=== PATIENT | female | born 1995 | race Caucasian/White ===

== ENCOUNTER 2016-12-17 16:36 | Emergency (ER) | payer OTHER ==
[2016-12-17 17:40] VITALS: BP 151/102
--- NOTE | 2016-12-17 17:49 | UC ---
Throat Pain/Nasal Jay HPI - HPI Summary HPI Summary: complaint of sore throat and nasal congestion that started 5 days ago productive cough with green sputum intermittent headaches denies fever and chills denies N/V/D using mucinex DM and nyquil without relief of cough no use of albuterol inhaler during this illness - History of Current Complaint Chief Complaint: UCRespiratory Stated Complaint: SINUS Time Seen by Provider: 12/17/16 17:42 Hx Last Menstrual Period: 12/11/16 - Allergies/Home Medications Allergies/Adverse Reactions: Allergies Allergy/AdvReac Type Severity Reaction Status Date / Time Cat Hair Extract Allergy Runny Nose Verified 12/17/16 17:15 Erythromycin Allergy GI Upset Verified 12/17/16 17:15 environmental Allergy Runny Nose Uncoded 12/17/16 17:15 Home Medications: Home Medications Dextromethorphan-Guaifenesin [Mucinex Dm Maximum Streng 60-1200 mg] 1 tab PO Q8HR PRN 12/17/16 [History Confirmed 12/17/16] PMH/Surg Hx/FS Hx/Imm Hx Previously Healthy: Yes Endocrine History Of: Denies: Diabetes, Thyroid Disease, Hyperthyroidism, Hypothyroidism, Dyslipidemia Cardiovascular History Of: Reports: Hypertension - readings --"borderline" watched by her PCP. Denies: Cardiac Disorders, Pacemaker/ICD, Myocardial Infarction, Congestive Heart Failure, Atrial Fibrillation, Deep Vein Thrombosis, Bleeding Disorders Respiratory History Of: Reports: Asthma - She only used an inhaler when she was 6 years old. Denies: COPD, Bronchitis, Pneumonia, Pulmonary Embolism GI/ History Of: Denies: Gastroesophageal Reflux, Ulcer, Gastrointestinal Bleed, Gall Bladder Disease, Kidney Stones, Diverticulitis, Renal Disease, Urosepsis Neurological History Of: Denies: TIA, CVA, Dementia, Seizures, Migraine Psychological History Of: Reports: Anxiety Denies: Depression, Bipolar Disorder, Schizophrenia, Post Traumatic Stress Disorder Cancer History Of: Denies: Lung Cancer, Colorectal Cancer, Breast Cancer, Prostate Cancer, Cervical Cancer Other History Of: Negative For: HIV, Hepatitis B, Hepatitis C - Surgical History Surgical History: Yes Surgery Procedure, Year, and Place: thumb - Family History Known Family History: Positive: Hypertension, Diabetes, Other - Grandmother with rheumatoid and osteoarthritis. - Social History Occupation: Student Alcohol Use: Occasionally Substance Use Type: None Smoking Status (MU): Never Smoked Tobacco Have You Smoked in the Last Year: No Review of Systems Constitutional: Negative Skin: Negative Eyes: Negative ENT: Sore Throat, Nasal Discharge Respiratory: Cough Cardiovascular: Negative Gastrointestinal: Negative Genitourinary: Negative Motor: Negative Neurovascular: Negative Musculoskeletal: Negative Neurological: Negative Psychological: Negative All Other Systems Reviewed And Are Negative: Yes Physical Exam Triage Information Reviewed: Yes Appearance: No Pain Distress, Well-Nourished Vital Signs: Initial Vital Signs Temp 98.2 F 12/17/16 17:07 Pulse 87 12/17/16 17:07 Resp 18 12/17/16 17:07 BP 151/102 12/17/16 17:07 Pulse Ox 100 12/17/16 17:07 Vital Signs Reviewed: Yes Eyes: Positive: Conjunctiva Clear ENT: Positive: Pharynx normal, Nasal congestion, TMs normal Neck: Positive: No Lymphadenopathy Respiratory: Positive: Lungs clear, Normal breath sounds, No respiratory distress Cardiovascular: Positive: RRR, No Murmur, Pulses Normal Abdomen Description: Positive: Nontender, Soft Bowel Sounds: Positive: Present Musculoskeletal: Positive: No Edema Neurological: Positive: Alert Psychological Exam: Normal Skin Exam: Normal Throat Pain/Nasal Course/Dx - Differential Dx/Diagnosis Differential Diagnosis/HQI/PQRI: Otitis Media, Tonsillitis, URI Provider Diagnoses: URI Discharge - Discharge Plan Condition: Stable Disposition: HOME Prescriptions: Benzonatate CAP* [Tessalon CAP*] 100 mg PO TID #30 cap Oxymetazoline 0.05% NASAL SPR* [Afrin 0.05% NASAL SPRAY*] 1 spray NASAL Q12H #1 btl Patient Education Materials: Upper Respiratory Infection (ED), Hypertension (ED ) Referrals: Mercedes Moran MD [Primary Care Provider] - Additional Instructions: Your blood pressure is elevated It is important that you followup with your primary care provider for further evaluation and treatment VIRAL UPPER RESPIRATORY INFECTION (COMMON COLD) What is Viral Upper Respiratory Infection? Viral upper respiratory infection is the medical term for the common cold. Respiratory infections can be caused by either a virus or bacteria. The common cold is caused by a virus. The virus travels through the air and can be passed easily from one person to another. This is one reason that it is so important to cover your mouth when you cough or sneeze. When you cover your mouth you will get the virus on your hands. If you touch something with that hand the virus is spread to the object you touch. Because of this you should be sure to wash your hands often when you have a cold. Symptoms usually begin 1 to 3 days after the virus takes hold in your body. Other people can catch your cold even before you start to notice symptoms, which is one reason why colds are hard to prevent. Symptoms May Include: Scratchiness or tickling in the throat Sore throat Stuffy nose Generalized aches and pains Coughing or sneezing Feeling tired Treatment Recommendations: Drink plenty of clear, nonalcoholic fluids, such as water, sports drinks, or juice. For example, an average adult should drink 8 ounces every hour, a child 6 to 10 years should drink 4 ounces every hour, and a child under 6 should drink 1 to 2 ounces every hour. You should rest as much as possible. You can use a cool-mist humidifier or steam vaporizer to increase air moisture. This will make it easier to breathe. Remember that a steam vaporizer may contain hot water that can cause severe christianson. If you smoke, stopsmoke irritates bronchial passages. If you are coughing up mucus, and milk seems to make the sputum thicker, do not eat or drink foods that contain milk. You want to try to cough up mucous whenever possible so that you dont get pneumonia. Do not use cough suppressant medicine without your healthcare providers [place]. You should take all medications prescribed until completely gone, or as instructed. Non-prescription medicine such as acetaminophen (Tylenol) or ibuprofen (Motrin , Advil) may help your aches, pains, and fever. Do not take someone else's medicine, or penicillin tablets that you may have saved. You could cause a more serious problem than you already have. Don't bundle up to sweat out a fever. It only makes your fever worse. If you feel cold, cover up; if you feel warm, dress lightly. Dont use non-prescription medicine with antihistamines for your cold symptoms. They may make your mouth and nose too dry, and can make the mucous you are trying to cough up too thick to cough up easily. Antihistamines are more helpful for hay fever-like symptoms.
== END 2016-12-17 18:01 | disposition home or self-care (01) ==
LOC: UCCORT 16:36
DX: J06.9 Acute upper respiratory infection, unspecified (principal); Z88.1 Allergy status to other antibiotic agents
CPT/HCPCS: 99212; G0463

== ENCOUNTER 2017-04-07 13:08 | Emergency (ER) | payer OTHER ==
--- NOTE | 2017-04-07 14:13 | UC ---
Ear Complaint HPI - HPI Summary HPI Summary: 22 female presents with complaints of bilateral ear pain, fullness and feeling like she is hearing under water. Patient denies any recent swimming or submerging ears under water. States she has been suffering nasal congestion, sore throat and cough for the past week without much relief. Has been taking Advil and tried Dayquil today with little relief. Patient admits to chills but has not taken her temperature. She denies nausea/vomiting and sinus pressure. Admits to OM as a child, frequently. No discharge from ears or hearing loss. She thought at first it was allergies until ears began to cause her pain. She admits to throat feeling raw due to coughing and post nasal drip. - History of Current Complaint Chief Complaint: UCRespiratory Stated Complaint: cough,ear complaint Time Seen by Provider: 04/07/17 13:48 Hx Last Menstrual Period: 04/01/17 ?: No Onset/Duration: Sudden Onset, Lasting Weeks, Still Present, Worse Since Severity Initially: Mild Severity Currently: Moderate Pain Intensity: 6 Pain Scale Used: 0-10 Numeric Aggravating Factors: Nothing Alleviating Factors: OTC Meds Associated Signs/Symptoms: Positive: URI Symptoms. Negative: Discharge, Hearing Loss, Foreign Body Sensation, Trauma to Ear, Swelling @ Related History: Seasonal Allergies - Allergies/Home Medications Allergies/Adverse Reactions: Allergies Allergy/AdvReac Type Severity Reaction Status Date / Time Cat Hair Extract Allergy Runny Nose Verified 04/07/17 13:50 Erythromycin Allergy GI Upset Verified 04/07/17 13:50 environmental Allergy Runny Nose Uncoded 04/07/17 13:50 PMH/Surg Hx/FS Hx/Imm Hx Endocrine History Of: Denies: Diabetes, Thyroid Disease, Hyperthyroidism, Hypothyroidism, Dyslipidemia Cardiovascular History Of: Reports: Hypertension - readings --"borderline" watched by her PCP. Denies: Cardiac Disorders, Pacemaker/ICD, Myocardial Infarction, Congestive Heart Failure, Atrial Fibrillation, Deep Vein Thrombosis, Bleeding Disorders Respiratory History Of: Reports: Asthma - She only used an inhaler when she was 6 years old. Denies: COPD, Bronchitis, Pneumonia, Pulmonary Embolism GI/ History Of: Denies: Gastroesophageal Reflux, Ulcer, Gastrointestinal Bleed, Gall Bladder Disease, Kidney Stones, Diverticulitis, Renal Disease, Urosepsis Neurological History Of: Denies: TIA, CVA, Dementia, Seizures, Migraine Psychological History Of: Reports: Anxiety Denies: Depression, Bipolar Disorder, Schizophrenia, Post Traumatic Stress Disorder Cancer History Of: Denies: Lung Cancer, Colorectal Cancer, Breast Cancer, Prostate Cancer, Cervical Cancer Other History Of: Negative For: HIV, Hepatitis B, Hepatitis C - Surgical History Surgical History: Yes Surgery Procedure, Year, and Place: thumb as child - Family History Known Family History: Positive: Hypertension, Diabetes, Other - Grandmother with rheumatoid and osteoarthritis. - Social History Alcohol Use: Occasionally Substance Use Type: None Smoking Status (MU): Never Smoked Tobacco Have You Smoked in the Last Year: No - Immunization History Vaccination Up to Date: Yes Review of Systems Constitutional: Chills, Fatigue Skin: Negative Eyes: Negative ENT: Sore Throat, Ear Ache, Nasal Discharge Respiratory: Cough Cardiovascular: Negative Gastrointestinal: Negative Motor: Negative Neurological: Negative All Other Systems Reviewed And Are Negative: Yes Physical Exam Triage Information Reviewed: Yes Appearance: Well-Appearing - sounds congested on exam, No Pain Distress, Well- Nourished Vital Signs: Initial Vital Signs Temp 99 F 04/07/17 13:43 Pulse 87 04/07/17 13:43 Resp 18 04/07/17 13:43 BP 148/102 04/07/17 13:43 Pulse Ox 99 04/07/17 13:43 low grade temp. elevated BP, re-checked while in office to be 141/88. Also recommended follow up with PCP for re-check within the next week. Vital Signs Reviewed: Yes Eyes: Positive: Conjunctiva Clear ENT: Positive: Hearing grossly normal, Pharyngeal erythema, Nasal congestion, Nasal drainage, TMs normal, TM bulging, TM dull, TM red - b/l. Negative: Tonsillar swelling, Tonsillar exudate, Trismus, Muffled/hoarse voice Dental: Positive: Cervical Lymphadenopathy. Negative: Percussion Tenderness @ Neck: Positive: Supple, Nontender Respiratory: Positive: Chest non-tender, Lungs clear, Normal breath sounds, No respiratory distress, No accessory muscle use Cardiovascular: Positive: RRR, No Murmur, Pulses Normal Abdomen Description: Positive: Nontender, No Organomegaly, Soft Bowel Sounds: Positive: Present Musculoskeletal Exam: Normal Musculoskeletal: Positive: Strength Intact, ROM Intact Neurological: Positive: Alert Skin Exam: Normal Ear Complaint Course/Dx - Course Course Of Treatment: due to PE findings and HPI patient will be treated for OM with amoxicillin and flonase. Also suggested to continue advil/tylenol, saline rinses and hot showers. rest, fluids do not submerge ears under water. follow up. aware of worsening signs and symptoms. - Differential Dx/Diagnosis Differential Diagnosis/HQI/PQRI: Otitis Externa, Otitis Media, Pharyngitis, URI , Other Provider Diagnoses: Otitis Media b/l, URI Discharge - Discharge Plan Condition: Good Disposition: HOME Prescriptions: Amoxicillin CAP* [Amoxicillin 500 MG CAP*] 500 mg PO Q12H #20 cap Fluticasone NASAL SPRAY 50MCG* [Flonase NASAL SPRAY 50MCG*] 2 spray BOTH NARES DAILY #1 btl Patient Education Materials: Otitis Media (ED), Upper Respiratory Infection (ED ), Hypertension (ED) Referrals: Mercedes Moran MD [Primary Care Provider] - Additional Instructions: Take prescribed antibiotic as directed, until entire dose is finished even if symptoms persist. Take probiotic pill or eat arabic yogurt/ smoothie to help replenish good bacteria to prevent yeast infection. Double up on OCP since antibiotics decrease effectiveness of control. Advil/Tylenol for pain and fevers as needed. Do not stick anything in your ears and do not submerge under water. Gargle with salt water. Saline rinses you can buy over the counter. Recommend Claritin or Cristina D to help with allergies and dry up congestion. If symptoms worsen or do not improve please return. Follow up with PCP, especially to re-check elevated BP.
[2017-04-07 14:39] VITALS: BP 142/88
== END 2017-04-07 14:43 | disposition home or self-care (01) ==
LOC: UCCORT 13:08
DX: H66.93 Otitis media, unspecified, bilateral (principal); J06.9 Acute upper respiratory infection, unspecified; J45.909 Unspecified asthma, uncomplicated; F41.9 Anxiety disorder, unspecified; Z88.1 Allergy status to other antibiotic agents
CPT/HCPCS: 99212; G0463

== ENCOUNTER 2017-07-09 17:52 | Emergency (ER) | payer OTHER ==
[2017-07-09 18:15] VITALS: BP 145/78
--- NOTE | 2017-07-09 18:29 | UC ---
Complaint Female HPI - HPI Summary HPI Summary: Pt presents with request for STD screening. 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 Pt is currently taking oral antibiotic for treatment. Pt is requesting further STD testing. Specifically HIV and "any others that can be tested by blood" Pt is currently without any symptoms. - History Of Current Complaint Chief Complaint: UCSTDScreening Stated Complaint: PERSONAL Time Seen by Provider: 07/09/17 18:06 Hx Obtained From: Patient Hx Last Menstrual Period: 06/29/17 ?: No Severity Currently: None Associated Signs And Symptoms: Positive: Negative - Risk Factors Ovarian Torsion Risk Factor: Reproductive Age - Allergies/Home Medications Allergies/Adverse Reactions: Allergies Allergy/AdvReac Type Severity Reaction Status Date / Time Amoxicillin [From Augmentin] Allergy Vomiting Verified 07/09/17 18:16 Cat Hair Extract Allergy Runny Nose Verified 07/09/17 18:15 Clavulanic Acid Allergy Vomiting Verified 07/09/17 18:16 [From Augmentin] Erythromycin Allergy GI Upset Verified 07/09/17 18:15 environmental Allergy Runny Nose Uncoded 07/09/17 18:15 Home Medications: Home Medications Azithromycin TAB* [Zithromax TAB (Z-MAXINE) 250 mg #6 tabs] 250 mg PO DAILY [History Confirmed 07/09/17] PMH/Surg Hx/FS Hx/Imm Hx Previously Healthy: Yes Other History Of: Negative For: HIV, Hepatitis B, Hepatitis C - Surgical History Surgical History: Yes Surgery Procedure, Year, and Place: thumb as child - Family History Known Family History: Positive: Hypertension, Diabetes, Other - Grandmother with rheumatoid and osteoarthritis. - Social History Occupation: Employed Full-time Lives: With Family Alcohol Use: Occasionally Substance Use Type: None Smoking Status (MU): Never Smoked Tobacco Have You Smoked in the Last Year: No - Immunization History Vaccination Up to Date: Yes Review of Systems Constitutional: Negative Skin: Negative Eyes: Negative ENT: Negative Respiratory: Negative Cardiovascular: Negative Gastrointestinal: Negative Genitourinary: Negative Motor: Negative Neurovascular: Negative Musculoskeletal: Negative Neurological: Negative Psychological: Negative All Other Systems Reviewed And Are Negative: Yes Physical Exam Triage Information Reviewed: Yes Appearance: Well-Appearing Vital Signs: Initial Vital Signs Temp 98.8 F 07/09/17 18:11 Pulse 69 07/09/17 18:11 Resp 16 07/09/17 18:11 BP 145/78 07/09/17 18:11 Pulse Ox 100 07/09/17 18:11 Eye Exam: Normal ENT Exam: Normal Respiratory Exam: Other Respiratory: Positive: No respiratory distress Musculoskeletal Exam: Normal Neurological Exam: Normal Psychological Exam: Normal Skin Exam: Normal Complaint Female Dx - Course Course Of Treatment: I discussed with the patient safe sex practices and the tests that I have ordered. Pt is currently asymptomatic but is requesting STD testing due to new partner and recent diagnosis of chlamydia - Differential Dx/Diagnosis Differential Diagnosis/HQI/PQRI: Sexually Transmitted Disease Provider Diagnoses: STD screening. Discharge - Discharge Plan Condition: Stable Disposition: HOME Patient Education Materials: Sexually Transmitted Diseases (ED), Safe Sex (ED) Referrals: Mercedes Moran MD [Primary Care Provider] - If Needed
[2017-07-10 12:26] LABS: Syphilis Index < 0.1 Index
[2017-07-11 14:21] LABS: Herpes Simplex Virus I IgG AB Positive (Negative); Herpes Simplex Virus II IgG AB Negative (Negative)
[2017-07-11 17:36] LABS: Hepatitis C RNA Quantitative Undetected IU/mL (Undetected)
--- NOTE | 2017-07-12 08:29 | UC ---
Progress - Progress Note Progress Note: please notify patient and let her know that it showed she has had a cold sore in the past
== END 2017-07-09 19:18 | disposition home or self-care (01) ==
LOC: UCCORT 17:52
DX: Z11.3 Encounter for screening for infections with a predominantly sexual mode of transmission (principal); Z88.1 Allergy status to other antibiotic agents; Z11.4 Encounter for screening for human immunodeficiency virus [HIV]
CPT/HCPCS: 36415; 86592; 86695; 86696; 86703; 87522; 99211; G0463

== ENCOUNTER 2017-11-25 14:11 | Emergency (ER) | payer OTHER ==
[2017-11-25 15:26] VITALS: BP 163/90
--- NOTE | 2017-11-25 15:44 | UC ---
FLU HPI - HPI Summary HPI Summary: Pt c/o fever, chills, body aches, nasal congestion X 1 week. - History of Current Complaint Chief Complaint: UCGeneralIllness Stated Complaint: ST, NELY, FEVER 100 Time Seen by Provider: 11/25/17 15:21 Hx Obtained From: Patient Hx Last Menstrual Period: 11/10/17 ?: No Onset/Duration: Gradual Onset, Lasting Weeks - 1, Still Present Severity Currently: Moderate Severity Initially: Mild Associated Signs & Symptoms: Positive: Fever, T Max - 103, Myalgia, Cough, Nasal Congestion - Allergy/Home Medications Allergies/Adverse Reactions: Allergies Allergy/AdvReac Type Severity Reaction Status Date / Time Amoxicillin [From Augmentin] Allergy Vomiting Verified 11/25/17 15:25 Cat Hair Extract Allergy Runny Nose Verified 11/25/17 15:25 Clavulanic Acid Allergy Vomiting Verified 11/25/17 15:25 [From Augmentin] Erythromycin Allergy GI Upset Verified 11/25/17 15:25 environmental Allergy Runny Nose Uncoded 11/25/17 15:25 Home Medications: Home Medications Ibuprofen TAB* [Advil TAB*] 400 mg PO Q6H PRN 11/25/17 [History Confirmed ] Norgestimate-Ethinyl Estradiol [Mononessa] 1 tab PO BEDTIME 11/25/17 [History Confirmed 11/25/17] PMH/Surg Hx/FS Hx/Imm Hx Previously Healthy: Yes Other History Of: Negative For: HIV, Hepatitis B, Hepatitis C - Surgical History Surgical History: Yes Surgery Procedure, Year, and Place: thumb as child - Family History Known Family History: Positive: Hypertension, Diabetes, Other - Grandmother with rheumatoid and osteoarthritis. - Social History Lives: With Family Alcohol Use: Occasionally Substance Use Type: None Smoking Status (MU): Never Smoked Tobacco Have You Smoked in the Last Year: No - Immunization History Most Recent Influenza Vaccination: none Vaccination Up to Date: Yes Review of Systems Constitutional: Fever, Chills, Fatigue Skin: Negative Eyes: Negative ENT: Sore Throat, Sinus Congestion, Sinus Pain/Tenderness Respiratory: Cough Cardiovascular: Negative Gastrointestinal: Negative Genitourinary: Negative Motor: Negative Neurovascular: Negative Musculoskeletal: Negative Neurological: Negative Psychological: Negative Is Patient Immunocompromised?: No All Other Systems Reviewed And Are Negative: Yes Physical Exam Triage Information Reviewed: Yes Appearance: Well-Appearing Vital Signs: Initial Vital Signs Temp 99.9 F 11/25/17 15:21 Pulse 91 11/25/17 15:21 Resp 16 11/25/17 15:21 BP 163/90 11/25/17 15:21 Pulse Ox 100 11/25/17 15:21 Vital Signs Reviewed: Yes Eye Exam: Normal ENT Exam: Other ENT: Positive: Nasal congestion, Sinus tenderness Dental Exam: Normal Neck exam: Normal Respiratory Exam: Normal Cardiovascular Exam: Normal Musculoskeletal Exam: Normal Neurological Exam: Normal Psychological Exam: Normal Skin Exam: Normal Flu Course/Dx - Differential Dx/Diagnosis Differential Diagnosis/HQI/PQRI: Influenza, Upper Respiratory Infection Provider Diagnoses: Influenza A- Rapid result Discharge - Discharge Plan Condition: Stable Disposition: HOME Patient Education Materials: Influenza (ED) Referrals: Mercedes Moran MD [Primary Care Provider] - If Needed
== END 2017-11-25 16:06 | disposition home or self-care (01) ==
LOC: UCCORT 14:11
DX: J09.X2 Influenza due to identified novel influenza A virus with other respiratory manifestations (principal); Z72.89 Other problems related to lifestyle
CPT/HCPCS: 87502; 99211; G0463